=== PATIENT | female | born 1970 | race Caucasian/White ===

== ENCOUNTER 2016-12-20 15:08 | Emergency (ER) | payer SELFPAY ==
[~2016-12-20] VITALS: Ht 162.6 cm; Wt 72.7 kg
[2016-12-20] MEDS ORDERED: KETOROLAC TROMETHAMINE 60 MG/2 ML VIAL IM ONE (15:45)
[2016-12-20] MEDS ORDERED: HYDROCODONE/ACETAMINOPHEN 10-325 MG TABLET PO ONE (15:45)
[2016-12-20 17:32] VITALS: BP 128/77
== END 2016-12-20 17:36 | disposition home or self-care (01) ==
LOC: EMS 15:09
DX: S23.3XXA Sprain of ligaments of thoracic spine, initial encounter (principal); V49.40XA Driver injured in collision with unspecified motor vehicles in traffic accident, initial encounter; Y93.89 Activity, other specified; Y92.89 Other specified places as the place of occurrence of the external cause; Y99.8 Other external cause status
CPT/HCPCS: 96372; 99283; J1885